=== PATIENT | female | born 1980 | race Caucasian/White ===

== ENCOUNTER 2022-06-13 15:59 | Emergency (ER) | payer BC ==
--- OUTSIDE RECORDS SUMMARY | 2022-06-13 16:02 | XMS REPORT | Continuity of Care Document ---
:1980 Author Organization [facility] t Address [address] [place] [address] Care Team Providers Name Role Phone Eula Kirkland MD Attending Clinician Marco WHELAN, Kirsty Attending Clinician Unavailable EULA KIRKLAND M.D. Attending Clinician Unavailable Alex Lee Attending Clinician Junior Neely Attending Clinician Payers Payer Name Policy Type Policy Number Effective Date Expiration Date S ource Problems Condition Condition Condition Status Onset Resolution Last Treating Co mments Source Name Details Category Date Date Treatment Clinician Date Allergic Allergic Problem Active 2019-01-12 Memoria rhinitis rhinitis 11-08 21:29:38 l (disorder) (disorder) 00:00: Terry willis Active 00 11/08/2012 Problem 01/12/2019 Data migrated from [employer] [facility] [employer] on 10/17/14. 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 Medical Group History of History of Problem Resolve UT attention attention d Phys ici deficit deficit ans disorder disorder Well woman Well woman Problem Active U T exam exam Physici ans Bronchitis Bronchiti Problem Resolve 2009-052019-01-12 2019-01-12 Memoria (disorder) s d - 21:29:38 21:29:38 l (disorder) 00:00: Rafa n Resolved 00 03/14/2010 Problem 01/12/2019 Data migrated from [employer] on 12/01/14. Medical Group Allergies, Adverse Reactions, Alerts Allergy Allergy Status Severity Reaction(s) Onset Inactive Treating Comm ents Source Name Type Date Date Clinician Dextrome Drug Active [facility] thorphan Allergy [facility] 00:00: ine 00 Other Other Active 2013-05 Memoria Food Food 0-16 l Allergy< Allergy< 05:00: Rafa n sup>1, sup>1, 00 2</sup> 2</sup> dextrome dextrome Active Memori a thorphan thorphan l Matthew dextrome Allergy Active UT thorphan to drug Physici -phenyle (finding ans phrine ) Family History Family Member Diagnosis Comments Start Date Stop Date Source Mother Family history of malignant [facility] neoplasm of cervix Social History Social Habit Start Date Stop Date Quantity Comments Source Exposure to Not sure [facility] SARS-CoV-2 (event) Alcohol intake 2021-01-04 2021-01-04 Lifetime [facility] 00:00:00 00:00:00 non-drinker (finding) Sex Assigned At [birth year] [facility] 00:00:00 00:00:00 Smoking Status Start Date Stop Date Source Unknown if ever smoked [facility] Social History [facility] Medications Ordered Filled Start Stop Current Ordering Indication Dosage Frequency Signature Comments Components Source Medication Medication Date Date Medication? Clinician (SIG) Name Name drospirenon Yes [id number] Take 1 tab UT e-ethinyl 8-20 po daily, Healt h estradiol 00:00: september skip (Ocella) 00 placebo x 3-0.03 MG 3 months tablet FLUoxetine Yes [id number] Take one UT (PROzac) 10 8-20 tab po Health MG capsule 00:00: every day 00 2 weeks prior to menses FLUoxetine Yes [id number] Take one UT (PROzac) 10 8-20 tab po Health MG capsule 00:00: every day 00 2 weeks prior to menses drospirenon Yes [id number] Take 1 tab UT e-ethinyl 8-20 po daily, Healt h estradiol 00:00: may skip (Ocella) 00 placebo x 3-0.03 MG 3 months tablet drospirenon [id number] Take 1 tab UT e-ethinyl 8-20 08-20 po daily, Heal th estradiol 00:00: 00:00 september skip (Ocella) 00 :00 placebo x 3-0.03 MG 3 months tablet drospirenon Yes [id number] Take 1 tab UT e-ethinyl 7-21 po daily, Healt h estradiol 00:00: september skip (Ocella) placebo x 3-0.03 MG 3 months tablet drospirenon 2020- No [id number] Take 1 tab UT e-ethinyl 7-21 08-20 po daily, Heal th estradiol 00:00: 00:00 september skip (Ocella) 00 :00 placebo x 3-0.03 MG 3 months tablet Breo Yes 1{puff} QD Use 1 puff UT Ellipta 4-02 in the [place] 100-25 00:00: mouth or MCG/INH 00 throat 1 inhaler (one) time each day. INHALE ONE (1) PUFF(S) BY MOUTH ONCE A DAY Breo Yes 1{puff} QD Use 1 puff UT Ellipta 4-02 in the [facility] 100-25 00:00: mouth or MCG/INH 00 throat 1 inhaler (one) time each day. INHALE ONE (1) PUFF(S) BY MOUTH ONCE A DAY Ocella Ocella Yes EULA TAKE ONE U T 3-0.03 MG 3-0.03 MG 7-23 KIRKLAND MChristianDChristian TABLET BY [employer] Oral Tablet Oral Tablet 00:00: MOUTH ans 00 EVERY DAY drospirenon 2020- No 1{tbl} QD Take 1 U T e-ethinyl 7-23 07-21 tablet by Heal th estradiol 00:00: 00:00 mouth 1 (Ocella) 00 :00 (one) time 3-0.03 MG each day. tablet Amphetamine Yes 20 mg = 1 M emoria aspartate 5 1-03 tab, PO, l MG / 17:27: BID, [place] Amphetamine 00 05/20/2017, Sulfate 5 # 60 tab, MG / 0 Dextroamphe Refill(s) tamine saccharate 5 MG / Dextroamphe tamine Sulfate 5 MG Oral Tablet [Adderall] Amphetamine 2016-05 Yes 10 mg = 1 M emoria aspartate 2-29 tab, PO, l 2.5 MG / 14:07: TID, Matthew Amphetamine 14 05/15/2017 Sulfate 2.5 , # 90 MG / tab, 0 Dextroamphe Refill(s), tamine Replaced saccharate 10/15/16 Rx 2.5 MG / due to Dextroamphe wrong tamine manufactur Sulfate 2.5 er MG Oral Tablet [Adderall] Amphetamine 2016-05 Yes 10 mg = 1 M emoria aspartate 1-30 tab, PO, l 2.5 MG / 14:05: TID, Matthew Amphetamine 50 04/16/2017 Sulfate 2.5 , # 90 MG / tab, 0 Dextroamphe Refill(s), tamine Replaced saccharate 10/15/16 Rx 2.5 MG / due to Dextroamphe wrong tamine manufactur Sulfate 2.5 er MG Oral Tablet [Adderall] Tomas Marin Yes EULA TAKE ONE UT 3-0.03 MG 3-0.03 MG KIRKLAND M.D. TABLET BY Physici Oral Tablet Oral Tablet MOUTH ans EVERY DAY, SKIP PLACEBO WEEK AND CONTINUE ON NEXT PACK Adderall 10 Adderall 10 Yes U T MG Oral MG Oral Physici Tablet Tablet ans Xanax TABS Xanax TABS Yes [facility] Immunizations Ordered Immunization Filled Immunization Date Status Commen ts Source Name Name Tdap (Adacel) Unknown Completed [facility] Vital Signs Vital Name Observation Time Observation Value Comments Source Systolic blood 2021-01-04 119 mm[Hg] [facility] pressure 16:40:00 Diastolic blood 2021-01-04 89 mm[Hg] [facility] pressure 16:40:00 Heart rate 2021-01-04 101 /min [facility] 16:40:00 Body temperature 2021-01-04 36.39 Soila [facility] 16:40:00 Body height 2021-01-04 167.6 cm [facility] 16:40:00 Body weight 2021-01-04 46.267 kg [facility] 16:40:00 BMI 2021-01-04 16.46 kg/m2 [facility] 16:40:00 Systolic blood 2019-12-08 127 mm[Hg] Location: E; [facility] pressure 16:08:00 Position: Sitting Diastolic blood 2019-12-08 98 mm[Hg] Location: LUE; [facility] pressure 16:08:00 Position: Sitting Body height 2019-12-08 66 [in_us] [facility] 16:08:00 Weight 2019-12-08 107 [lb_av] [facility] 16:08:00 Body mass index 2019-12-08 17.27 kg/m2 [facility] (BMI) [Ratio] 16:08:00 Body temperature 2019-12-08 99 [degF] Method: [facility] 16:08:00 Temporal Heart Rate 2019-12-08 106 /min [facility] 16:08:00 BP Systolic 2018-12-27 117 mm[Hg] Location: LUE; [facility] 14:55:00 Position: Sitting BP Diastolic 2018-12-27 78 mm[Hg] Location: LUE; [facility] 14:55:00 Position: Sitting Height 2018-12-27 66 [in_us] [facility] 14:55:00 Weight 2018-12-27 108 [lb_av] [facility] 14:55:00 Body Mass Index 2018-12-27 17.43 kg/m2 [facility] Calculated 14:55:00 Heart Rate 2018-12-27 108 /min [facility] 14:55:00 BP Systolic 2017-12-21 125 mm[Hg] Location: LUE; [facility] 13:27:00 Position: Sitting BP Diastolic 2017-12-21 88 mm[Hg] Location: LUE; [facility] 13:27:00 Position: Sitting Height 2017-12-21 66 [in_us] [facility] 13:27:00 Weight 2017-12-21 107 [lb_av] [facility] 13:27:00 Body Mass Index 2017-12-21 17.27 kg/m2 [facility] Calculated 13:27:00 Weight 2017-05-20 Jamil Berkowitzan n 16:59:00 BMI Calculated 2017-05-20 Jamil Herm geena 16:59:00 Heart Rate 2017-05-20 Jamil Berkowitzan n 16:59:00 Height 2017-05-20 167.64 cm Jamil Craig n 16:59:00 Systolic (mm Hg) 2017-05-[address] [facility] rmann 16:59:00 Diastolic (mm Hg) 2017-05-20 [facility] ermann 16:59:00 Procedures Procedure Date / Time Performing Clinician Source Performed [Q] THINPREP-TIS 2019-12-08 00:00:00 [facility] [Q] HPV mRNA E6/E7 REFLEX 2019-12-08 00:00:00 [facility] TO HPV 16,18/45 QNS SAMPLE . [facility] - PAP 2018-12-27 00:00:00 [facility] Christian [facility] - PAP 2017-12-21 00:00:00 [facility] Removal of breast [facility] nn implant<sup>1</sup> History of Loop [facility] electrosurgical excision procedure History of Breast [facility] augmentation Encounters Start End Encounter Admission Attending Care Care Encounter Source Date/Time Date/Time Type Type Clinicians Facility Department ID 2021-01-04 2021-01-[address] [facility] [id number] [place] 11:35:17 12:04:08 Visit Eula MCCRAY [id number] H [facility] [id number] AND 2 WOMENS 2021-01-04 2021-01-04 Orders [place], Kirsty [facility] [id number] [place] 00:00:00 00:00:00 Only Marco, Kirsty SUGAR [id number] [facility] MED [id number] [id number] AND 2 WOMENS 2020-12-05 2020-12-05 Orders [place], Kirsty [facility] [id number] [place] 00:00:00 00:00:00 Only Marco, Kirsty SUGAR [id number] [facility] MED [id number] [id number] AND 2 WOMENS 2019-12-08 2019-12-08 Appointmen ANNA KIRKLAND [facility] [id number] [place] 15:45:00 15:45:00 t; EULA KIRKLAND, [place] - Ph jeffy BONILLA M.D. Donna fernandez M.D. 2019-07-04 2019-07-04 [id number] [address] [place] [address] 10:00:00 10:00:00 12 stephen Castro 2019-01-10 2019-01-10 Ambulatory nullFlavo [facility] [id number] Memoria 16:10:00 16:10:00 Pre-Reg r Primary 11 l Care and [place] [facility] Mobile 2019-01-10 2019-01-10 Outpatient GILBERTO JOSEF [id number] Memoria 11:10:00 11:10:00 11 l [place] 2019-01-10 2019-01-10 Outpatient Jesus [facility] [id number] 11:10:00 11:10:00 Alexpenny Dukes 2018-12-27 2018-12-27 [id number] [place] 14:30:00 14:30:00 t; [facility] [address] [facility]ON[facility] M.D. Mobile jim Avila 2018-07-19 2018-07-19 [facility] [id number] [place] 13:15:00 13:15:00 t; EULA KIRKLAND Phy sici MICHELLE, M.D. ans M.D. 2017-12-21 2017[facility]21 [facility] [id number] [place] 13:15:00 13:15:00 t; [facility] Renetta BON[facility] M.D. [facility] jim Avila 2017-05-20 2017-05-21 Outpatient nullFlavo [facility] [id number] Memoria 17:00:00 05:59:59 r Primary 10 l Care Sugar Wanda [facility] 2017-05-20 2017-05-20 Outpatient Chin [facility] [id number] 11:00:00 23:59:59 [place] 10 2017-05-20 2017-05-20 Outpatient JOSEF JOSEF [id number] Memoria 11:00:00 11:00:00 10 l [place] 2017-05-14 2017-05-16 Phone nullFlavo [facility] [id number] Memoria 16:46:00 05:59:59 Message r Primary 35 l Care Sugar Wanda nn [facility] 2017-05-14 2017-05-15 Outpatient MG MG [id number] 10:46:00 23:59:59 35 2017-04-14 2017-04-16 Phone nullFlavo MG [id number] Memoria 22:03:00 05:59:59 Message r Primary 34 l Dorcas [place] Wanda nn [place] 2017-04-14 2017-04-15 Outpatient MHMG [facility] [id number] 16:03:00 23:59:59 34 2017-04-13 2017-04-13 Outpatient MHIE MHIE [id number] Memoria 13:00:00 13:00:00 07 stephen Castro 2017-02-24 2017-02-24 Outpatient MHIE MHIE [id number] Memoria 09:00:00 09:00:00 08 stephen Castro 2017-02-09 2017-02-09 Appointmen ANNA KIRKLAND [id number] [place] 14:30:00 14:30:00 tEULA REYNOSO Phy sici MICHELLE, M.D. ans M.D. 2017-01-22 2017-01-22 Outpatient MHIE MHIE [id number] Memoria 15:00:00 15:00:00 09 stephen Castro 2016-10-15 2016-10-15 Outpatient MHIE MHIE [id number] Memoria 11:15:00 11:15:00 06 stephen Castro 2016-04-28 2016-04-28 Outpatient MHIE MHIE [id number] Memoria 13:00:00 13:00:00 05 stephen Castro 2015-10-26 2015-10-26 Outpatient MHIE MHIE [id number] Memoria 11:00:00 11:00:00 04 stephen Castro 2015-06-29 2015-06-29 Outpatient MHIE MHIE [id number] Memoria 11:45:00 11:45:00 03 stephen Castro 2015-03-07 2015-03-07 Outpatient MHIE MHIE [id number] Memoria 16:00:00 16:00:00 00 stephen Castro 2015-02-21 2015-02-21 Outpatient MHIE MHIE [id number] Memoria 11:00:00 11:00:00 02 stephen Castro 2015-02-21 2015-02-21 Outpatient MHIE MHIE [id number] Memoria 10:00:00 10:00:00 01 stephen Castro Results Test Description Test Time Test Comments Results Result Comments Source [Q] THINPREP-TIS 2019-12-08 00:00:00 Test Item Value Reference Range Interpretation Comme nts CLINICAL INFORMATION: (test code See Comment N None given = CLINICAL INFORMATION:) LMP: (test code = LMP:) See Comment N NONE GIVEN PREV. PAP: (test code = PREV. See Comment N NONE GIVEN PAP:) PREV. BX: (test code = PREV. BX:) See Comment N NONE GIVEN SOURCE: (test code = SOURCE:) See Comment N None given STATEMENT OF ADEQUACY: (test code See Comment N Satisfactory for = STATEMENT OF ADEQUACY:) ev aluation.Endocervical/transformati on zone compone ntpresent.Age and/or menstrual statu s not provided INTERPRETATION/RESULT:; Normal See Comment N Negative for intraepithelial lesion (test code = 69993-8) or mal ignancy. COMMENT:; Normal (test code = See Comment N This Pap test has been evaluated ) with [employer] sisABS technology. CLOTH WEAVER: (test code = See Comment N JRR, CT (ASCP)CT screening location: CLOTH WEAVER:) [facility] [address], [facility] [address] 2 See Comment (test code = See See Comment EXPLANATORY NOTE: The Pap is a Comment) screening test for cervical cancer. It is not a selma gnostic test and is subject to fals e negative and false positive result s. It is most reliable when a satisfactory sample, regularly obtai sukhdeep, is submitted with relevant c linical findings and history, and wh en the Pap result is evaluated along with historic and current clinica l information. [facility][Q] HPV mRNA E6/E7 REFLEX TO HPV 16,18/45 [facility] [id number] 00:00:00 Test Item Value Reference Range Interpretation Comments HPV mRNA E6/E7 Not Detected Not Detected N This test was performed (test code = using the APTIM A HPV Assay HPV mRNA E6/E7) (Gen-Probe I nc.). This assay detects E 6/E7 viral messenger RNA ( mRNA) from 14high-risk HPV types (16,18,31,33,35 ,39,45,51,5 2,56,58,59,66,6 8). The analytical perf ormance characteristics ofthis assay have been determined by [employer]. The modifications h ave not beencleared or approved by the FDA. This a ssay hasbeen validat ed pursuant to the CLIA reg [facility] is used for cli nical purposes. [facility]. [facility] - [id number] 00:00:00 Test Item Value Reference Range Interpretation Comments PAP REPORT (test code = 14360-8) See Comment [facility]. [facility] - [id number] 00:00:00 Test Item Value Reference Range Interpretation Comments PAP REPORT (test code = 20730-5) See Comment [facility]. [facility] - HPV High [id number] 00:00:00 Test Item Value Reference Range Interpretation Comments HPV High Risk REPORT (test code = Negative HPV High Risk REPORT) [facility]
[2022-06-13 16:54] LABS: Urine Blood Negative (Negative); Urine Glucose Negative (Negative); Urine Protein Trace (Negative)
[2022-06-13 17:00] LABS: Absolute Lymphocytes (CBC) 1.7 K/uL (0.7-4.9); Lymphocytes % 24.9 % (15.3-44.8); MCV 83.5 fL (80-100); MPV 9.4 fL (7.6-11.3); RBC Red Blood Cell Count 5.15 M/uL (3.86-4.86)
[2022-06-13 17:01] LABS: Protime INR 1.17
[2022-06-13 17:07] LABS: Albumin 3.9 g/dL (3.4-5.0); Bilirubin Total 0.2 mg/dL (0.2-1.0); Magnesium 2.3 mg/dL (1.6-2.4); Potassium 3.5 mmol/L (3.5-5.1); Protein, Total 8.1 g/dL (6.4-8.2); Troponin High Sensitivity 7.7 pg/mL (<58.9)
--- NOTE | 2022-06-13 17:58 | RAD REPORT ---
EXAM DESCRIPTION: US - Extremity Venous Uni Ltd - 06/13/2022 5:48 pm CLINICAL HISTORY: Swelling COMPARISON: None. TECHNIQUE: Real-time sonographic evaluation of the right lower extremity deep venous system was perf ormed. FINDINGS: Normal compressibility, flow augmentation, phasic flow and spontaneous flow is identified in the right lower extremity deep venous system. No intraluminal filling defects seen. IMPRESSION: No DVT in the right lower extremity.
--- NOTE | 2022-06-13 18:03 | RAD REPORT ---
EXAM DESCRIPTION: US - Lower Extremity Arterial Bilat - 06/13/2022 5:48 pm CLINICAL HISTORY: Leg pain COMPARISON: None FINDINGS: Color Doppler, grayscale, and spectral analysis was performed. The common femoral, superficial femoral and popliteal arteries bilaterally demonstrate triphasic wave forms The posterior tibial and dorsalis pedis arteries demonstrate triphasic and/or biphasic waveforms bila terally. IMPRESSION: No evidence of hemodynamically significant peripheral vascular disease in the lower extr emities.
--- NOTE | 2022-06-13 18:32 | EDPHYS ---
Physician Documentation [facility] Name: Eula Garcia Age: 41 yrs Sex: Female : 1980 Arrival Date: 06/13/2022 Time: 16:01 Bed 15 Private MD: ED Physician Imer Castle HPI: 06/13 17:28 This 41 yrs old Female presents to ER via Ambulatory with complaints of Feet Swelling, kb Leg Pain. 17:28 The patient presents with pain, swelling. The complaints affect the right calf. kb Context: The problem was sustained at home, resulted from an unknown cause, the patient can fully bear weight, the patient is able to ambulate. Onset: The symptoms/episode began/occurred today. Modifying factors: The symptoms are alleviated by nothing. the symptoms are aggravated by nothing. Associated signs and symptoms: Pertinent positives: swelling. Treatment prior to arrival includes: no previous treatment. Severity of symptoms: At their worst the symptoms were mild, moderate, in the emergency department the symptoms have resolved. The patient has not experienced similar symptoms in the past. The patient has not recently seen a physician. Pt reports she has had intermittent purple discoloration to bilateral feet for 2.5 months. Came in today because she had some swelling and a discomfort in right calf so she was concerned about a blood clot. . [employer] SPECIALIST: 19:09 LMP N/A - control method kr3 Historical: - Allergies: 16:06 dextromethorphan HBr; hb 16:06 SEAFOOD; hb - Home Meds: 16:06 Adderall XR Oral [Active]; hb - PMHx: 16:06 ADHD; hb - Immunization history:: Adult Immunizations unknown. - Social history:: Smoking status: Patient denies any tobacco usage or history of. ROS: 17:27 Constitutional: Negative for fever, chills, and weight loss. kb 17:27 MS/extremity: Positive for pain, swelling, of the right lower leg. 17:27 Skin: Positive for intermittent purple discoloration to bilateral feet. 17:27 All other systems are negative. Exam: 17:23 Constitutional: This is a well developed, well nourished patient who is awake, alert, kb and in no acute distress. Head/Face: Normocephalic, atraumatic. ENT: Moist Mucous membranes Cardiovascular: Regular rate and rhythm with a normal S1 and S2. No gallops, murmurs, or rubs. No pulse deficits. Respiratory: Respirations even and unlabored. No increased work of breathing. Talking in full sentences Abdomen/GI: Soft, non-tender. No distention Skin: Warm, dry with normal turgor. Normal color. MS/ Extremity: Pulses equal, no cyanosis. Neurovascular intact. Full, normal range of motion. Neuro: Awake and alert, GCS 15, oriented to person, place, time, and situation. Moves all extremities. Normal gait. Psych: Awake, alert, with orientation to person, place and time. Behavior, mood, and affect are within normal limits. 17:23 ECG was reviewed by the Attending Physician. Vital Signs: 16:03 BP 126 / 97; Pulse 107; Resp 16; Temp 98.3; Pulse Ox 100% on R/A; Weight 45.36 kg; hb Height 5 ft. 6 in. (167.64 cm); Pain 1/10; 17:30 BP 125 / 92; Pulse 87; Resp 17; Pulse Ox 100% ; kr3 16:03 Body Mass Index 16.14 (45.36 kg, 167.64 cm) hb MDM: 16:06 Patient medically screened. kb 17:28 Data reviewed: vital signs, nurses notes. kb 17:32 Differential diagnosis: DVT, cellulitis, PVD, raynaud's syndrome. kb 18:30 Counseling: I had a detailed discussion with the patient and/or guardian regarding: the kb historical points, exam findings, and any diagnostic results supporting the discharge/admit diagnosis, lab results, radiology results, the need for outpatient follow up, a family practitioner, to return to the emergency department if symptoms worsen or persist or if there are any questions or concerns that arise at home. 18:32 ED course: I discussed diagnostic results with pt and gave her a printed copy. kb Discussed possible Raynaud syndrome and need for further testing by pcp. Pt's hand are erythematous and finger tips are purple upon reexamination. Pt reports her hands have always done that but the thought it was due to her blood pressure fluctuating after taking her Adderall for ADHD. 06/13 16:15 Order name: CBC with Diff; Complete Time: 17:19 kb 06/13 16:15 Order name: Magnesium; Complete Time: 17:13 kb 06/13 16:15 Order name: Protime (+inr); Complete Time: 17:13 kb 06/13 16:15 Order name: Ptt, Activated; Complete Time: 17:13 kb 06/13 16:15 Order name: Troponin High Sensitivity; Complete Time: 17:13 kb 06/13 16:15 Order name: CMP; Complete Time: 17:13 kb 06/13 16:15 Order name: EKG; Complete Time: 16:15 kb 06/13 16:15 Order name: Cardiac monitoring; Complete Time: 16:45 kb 06/13 16:15 Order name: EKG - Nurse/Tech; Complete Time: 17:08 kb 06/13 16:15 Order name: IV Saline Lock; Complete Time: 16:45 kb 06/13 16:15 Order name: US Extremity Venous Unilateral Ltd; Complete Time: 18:00 kb 06/13 16:15 Order name: Lower Extremity Arterial Bilat US; Complete Time: 18:05 kb 06/13 16:55 Order name: Urine Dipstick-Ancillary; Complete Time: 16:56 EDMS 06/13 16:15 Order name: Labs collected and sent; Complete Time: 16:45 kb 06/13 16:15 Order name: NPO; Complete Time: 16:45 kb 06/13 16:15 Order name: O2 Per Protocol; Complete Time: 16:45 kb 06/13 16:15 Order name: O2 Sat Monitoring; Complete Time: 16:45 kb 06/13 16:15 Order name: Urine Dipstick-Ancillary (obtain specimen); Complete Time: 17:14 kb EC:23 Rate is 89 beats/min. Rhythm is regular. QRS [place] is Normal. [place] interval is normal at kb 128 msec. QRS interval is normal at 80 msec. QT interval is normal at 418 msec. Clinical impression: Normal ECG. Administered Medications: No medications were administered Disposition Summary: 06/13/22 18:31 Discharge Ordered Location: Home kb Condition: Stable kb Diagnosis - Intermittent cyanosis of hands and feet kb Followup: kb - With: Emergency Department - When: As needed - Reason: Worsening of condition Followup: kb - With: Private Physician - When: 2 - 3 days - Reason: Recheck today's complaints, Continuance of care, Re-evaluation by your physician Discharge Instructions: - Discharge Summary Sheet kb - Raynaud Phenomenon kb Forms: - Medication Reconciliation Form kb - Thank You Letter kb - Antibiotic Education kb - Prescription Opioid Use kb Signatures: Dispatcher [employer] EDAnn-Marie Maki, DEVIN-C DEVIN-Parvin Lyons, RN RN hb Inga Anguiano RN RN kr3 Corrections: (The following items were deleted from the chart) 16:06 16:06 Allergies: No Known Allergies; [facility]
--- NOTE | 2022-06-13 18:32 | ER ---
Nurse's Notes [facility] Name: Eula Garcia Age: 41 yrs Sex: Female : 1980 Arrival Date: 06/13/2022 Time: 16:01 Bed 15 Private MD: Diagnosis: Intermittent cyanosis of hands and feet Presentation: 06/13 16:03 Chief complaint: "My feet have been turning dark purple and feel cold sometimes." Today hb reports right foot swelling and vague pain in the right calf. Coronavirus screen: At this time, the client does not indicate any symptoms associated with coronavirus-19. Ebola Screen: No symptoms or risks identified at this time. Initial Sepsis Screen: Does the patient meet any 2 criteria? No. Patient's initial sepsis screen is negative. Does the patient have a suspected source of infection? No. Patient's initial sepsis screen is negative. Risk Assessment: Do you want to hurt yourself or someone else? Patient reports no desire to harm self or others. Onset of symptoms was June 13, 2022. 16:03 Method Of Arrival: Ambulatory hb 16:03 Acuity: ROBBIE 3 hb Triage Assessment: 18:05 Pain: Denies pain. kr3 19:08 General: Appears in no apparent distress. comfortable, Behavior is calm, cooperative, kr3 anxious. 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 - Social history:: Smoking status: Patient denies any tobacco usage or history of. Screenin:08 [facility] ED Fall Risk Assessment (Adult) History of falling in the last 3 months, kr3 including since admission No falls in past 3 months (0 pts) Confusion or Disorientation No (0 pts) Intoxicated or Sedated No (0 pts) Impaired Gait No (0 pts) Mobility Assist Device Used No (0 pt) Altered Elimination No (0 pt) Score/Fall Risk Level 0 - 2 = Low Risk. Abuse screen: Denies threats or abuse. Nutritional screening: No deficits noted. Tuberculosis screening: No symptoms or risk factors identified. Assessment: 17:00 Reassessment: Patient appears in no apparent distress at this time. Patient and/or kr3 family updated on plan of care and expected duration. Pain level reassessed. Patient is alert, oriented x 3, equal unlabored respirations, skin warm/dry/pink. Vital Signs: 16:03 BP 126 / 97; Pulse 107; Resp 16; Temp 98.3; Pulse Ox 100% on R/A; Weight 45.36 kg; hb Height 5 ft. 6 in. (167.64 cm); Pain 1/10; 17:30 BP 125 / 92; Pulse 87; Resp 17; Pulse Ox 100% ; kr3 16:03 Body Mass Index 16.14 (45.36 kg, 167.64 cm) hb ED Course: 16:01 Patient arrived in ED. rg4 16:04 [facility] kb 16:04 Imer Castle MD is Attending Physician. kb 16:05 Triage completed. hb 16:06 Arm band placed on. hb 16:10 Bed in low position. Call light in reach. Side rails up X 1. kr3 16:20 Inserted saline lock: 22 gauge in right antecubital area, using aseptic technique. kr3 Blood collected. 16:45 Inga Anguiano, RN is Primary Nurse. kr3 17:50 US Extremity Venous Unilateral Ltd In Process Unspecified. EDMS 17:50 Lower Extremity Arterial Bilat US In Process Unspecified. EDMS 19:08 No provider procedures requiring assistance completed. kr3 19:09 IV discontinued, intact, bleeding controlled, No redness/swelling at site. Pressure kr3 dressing applied. Administered Medications: No medications were administered Medication: 19:10 VIS not applicable for this client. kr3 Outcome: 18:31 Discharge ordered by MD. kb 18:59 Patient left the ED. kr3 19:09 Discharged to home ambulatory. kr3 19:09 Condition: stable 19:09 Discharge instructions given to patient, Instructed on discharge instructions, follow up and referral plans. Demonstrated understanding of instructions, follow-up care. Signatures: Dispatcher [employer] EDMS Ann-Marie Tejada FNP-C FNP-Ckb Baxter, Heather, RN RN hb Garcia, Rubi rg4 Inga Anguiano, TIP RN kr3 Corrections: (The following items were deleted from the chart) 16:06 16:06 Allergies: No Known Allergies; hb hb 19:09 17:08 Inserted saline lock: 22 gauge in right antecubital area, using aseptic kr3 technique. Blood collected. kr3
[2022-06-13 19:04] VITALS: TEMP 98.3; O2SAT 100
[2022-06-13 19:05] VITALS: BP 125/92
== END 2022-06-13 18:59 | disposition home or self-care (01) ==
LOC: ER 15:59
DX: R23.0 Cyanosis (principal); F90.9 Attention-deficit hyperactivity disorder, unspecified type; Z88.8 Allergy status to other drugs, medicaments and biological substances; Z91.013 Allergy to seafood
CPT/HCPCS: 36415; 80053; 81003; 83735; 84484; 85025; 85610; 85730; 93005; 93925; 93971; 99283